=== PATIENT | female | born 1995 | race American Indian/Alaskan Native ===

== ENCOUNTER 2024-09-26 09:34 | Emergency (ER) | payer MEDICAID, SELFPAY ==
[2024-09-26 09:35] VITALS: BMI 46.3
[2024-09-26 09:50] VITALS: BP 133/87; PULSE 86; RESP 18; TEMP 37; O2SAT 99
--- NOTE | 2024-09-26 10:03 | EKG_ITS ---
[facility] (Formerly [facility]) Test Date: 2024-09-26 Pat Name: ANAMIKA DAVIS Department: Room: - Gender: Female [employer] Installer: : 1995 Requested By: Marcello Godinez (HEMA) Order Number: [id number] Reading MD: Marcello Godinez (DIRECT SUPPORT STAFF MEMBER) Measurements Intervals [place] Rate: 94 P: 16 WI: 156 QRS: 65 QRSD: 92 T: 22 QT: 356 QTc: 446 Interpretive Statements SINUS RHYTHM No previous ECG available for comparison /[id number]/[email or web address]/[id number]
--- NOTE | 2024-09-26 10:03 | XR_ITS ---
Examination: PA lateral chest 2 views Technique: Upright PA lateral chest 2 views Exam date and time: September 26, 2024 11:20 AM Indications: Coughing beginning 3 days ago. Findings: Normal heart size No lobar pneumonia. The osseous structures are intact Impression: No lobar pneumonia
--- NOTE | 2024-09-26 12:36 | EDNOTE_ITS ---
<Statement entered by Lorie Rivers MD - 09/27/24 06:06> As co-signing physician, I was present and available for consult prn. I concur with the plan and care as documented by the midlevel provider. Upper Respiratory Inf. RME/HPI General Chief Complaint: Headache Stated Complaint: HEADACHE & CHEST PAIN WITH COUGHING; Time Seen by Provider: 09/26/24 09:53 Arrival date/time: 09/26/24 09:34 28-year-old female presents emergency department today complaints of headache, cough, congestion and chest pain. Limitations: no limitations Related Data Home Medications ?Medication ?Instructions ?Recorded ?Confirmed ferrous sulfate 325 mg (65 mg 325 mg PO BID 01/11/23 0 11/21/23 iron) tablet vitamin-ferrous fumarate 1 tab PO QDAY 11/21/23 28 mg iron-folic acid 800 mcg tablet ( Vitamins with Minerals) Previous Rx's ?Medication ?Instructions ?Recorded albuterol sulfate 90 mcg/actuation 2 puff inhalation Q 6H PRN 09/26/24 aerosol inhaler (Ventolin HFA) shortness of breath or wheezing #8.5 grams benzonatate 100 mg capsule 100 mg PO TID #14 caps 02/12 ibuprofen 800 mg tablet 800 mg PO TID PRN pain #30 t abs 09/26/24 Allergies Allergy/AdvReac Type Severity Reaction Status Date / Time No Known Allergies Allergy Unknown Verified 09/26/24 09:37 Review of Systems Review of Systems Systems Reviewed: All systems reviewed, normal except as documented Constitutional Constitutional: Reports system reviewed and no additional complaints, except as documented, Denies fatigue, Denies fever(s) and Denies headache(s) Eyes Eyes: Reports system reviewed and no additional complaints, except as documented and Denies blurry vision ENT Ears, Nose, Mouth, and Throat: Reports system reviewed and no additional complaints, except as documented, Denies headache(s), Denies nasal congestion and Denies nasal discharge Cardiovascular Cardiovascular: Reports system reviewed and no additional complaints, except as documented, Reports chest pain and Denies dyspnea Respiratory Respiratory: Reports system reviewed and no additional complaints, except as documented, Reports chest congestion, Reports cough and Denies dyspnea Gastrointestinal Gastrointestinal: Reports system reviewed and no additional complaints, except as documented and Denies abdominal pain Genitourinary Genitourinary: Reports system reviewed and no additional complaints, except as documented, Denies flank pain, Denies hematuria and Denies pelvic pain Musculoskeletal Musculoskeletal: Reports system reviewed and no additional complaints, except as documented, Denies abnormal gait, Denies numbness, Denies stiffness and Denies tingling Integumentary/Breasts Skin/Breast: Reports system reviewed and no additional complaints, except as documented and Denies rash Neurologic Neurologic: Reports system reviewed and no additional complaints, except as documented, Reports as per HPI, Denies abnormal gait, Denies headache(s), Denies numbness and Denies tingling Psychiatric Psychiatric: Reports system reviewed and no additional complaints, except as documented and Denies anxiety Endocrine Endocrine: Denies fatigue Past Medical History Past Medical History NEUROLOGIC: Positive Neurological Disorders, Seizures and Epilepsy (LAST SEIZURE AT 20 YEARS OLD, NO MEDICATIONS); Negative Cerebrovascular Accident, Dementia, Alzheimer's Disease, Parkinson's Disease, Brain Tumor, Meningitis, Multiple Sclerosis, Cerebral Palsy, Amyotrophic Lateral Sclerosis (ALS/Laly Gehrig's), Guillain-[place]akfield Syndrome, Spina Bifida, Paralysis, Peripheral Neuropathy, Fernandez's Palsy, Migraine or Head Trauma CARDIAC: Positive Cardiac Disorders and Hypertension (GRANDMOTHER); Negative Congestive Heart Failure RESPIRATORY: Negative Chronic Obstructive Pulmonary Disease (COPD) GASTROINTESTINAL: Positive Gastrointestinal Disorders, Gall Bladder Disease, Gastroesophageal Reflux Disease and Obesity; Negative Hepatitis GENITOURINARY: Negative Genitourinary Disorders or Renal Disease REPRODUCTIVE: Positive Previous Pregnancies (X3); Negative Endometriosis, Genital Herpes, Gonorrhea, Pelvic Inflammatory Disease, Syphilis or Uterine Prolapse MUSCULOSKELETAL: Negative Musculoskeletal Disorders ENT: Negative Head Trauma ENDOCRINE: Negative Endocrine Disorders, Diabetes Mellitus Type 1 or Diabetes Mellitus Type 2 HEMATOLOGIC: Positive Blood Disorders and Anemia; Negative Leukemia, Hemophilia, Thalassemia, Sickle Cell Disease or Clotting Problems PSYCHO/SOCIAL: Positive Depression, Anxiety and Depression OTHER HISTORY: Negative Hospitalization, Autoimmune Disease, Down Syndrome, Developmental Delay, Shingles, Falls, Blood Transfusions, Blood Transfusion Reaction, Anesthesia Reactions, Organ Transplant, Chemotherapy, Radiation Therapy, Hyperbaric Therapy, MRSA, VRSA, Vancomycin-Resistant Enterococci, Human Immunodeficiency Virus (HIV), Chicken Pox, Measles, Mumps, Rubella (Nepali Measles), Pertussis, Clostridium Difficile or Cancer Family History FAMILY HISTORY: Positive Family Psychiatric Problems (SISTERS- BIPOLAR, DEPRESSION), Family Respiratory Disorders (MULTIPLE FAMILY MEMBERS- ASTHMA), Family Cardiac Disorders (GRANDMOTHER- HTN), Family Gastrointestinal Problems (SISTERS-GALL BLADDER DISEASE), Family Cancer (AUNT- BREAST) and Family Surgery (SISTERS- CHOLECYSTECTOMIES); Negative Family Anesthesia Reaction Surgical History SURGICAL: Positive Abdominal Surgery; Negative Section or Organ Transplant Social History SMOKING STATUS: Current some day smoker ED Exam General Limitations: Present no limitations General appearance: Present alert and in no apparent distress Head Head exam: Present atraumatic, normocephalic and normal inspection Eye Eye exam: Present normal appearance, PERRL and EOMI ENT ENT exam: Present normal exam, normal oropharynx and mucous membranes moist Neck Neck exam: Present normal inspection, full ROM and trachea midline Chest Chest inspection: Present normal inspection and symmetric chest wall rise Respiratory Respiratory exam: Present normal lung sounds bilaterally; Absent respiratory distress Cardiovascular Cardiovascular exam: Present regular rate, normal rhythm and normal heart sounds; Absent bradycardia, tachycardia or irregular rhythm Abdominal Exam Abdominal exam: Present soft and normal bowel sounds; Absent distention, tenderness, guarding, rebound or rigidity Extremities Exam Extremities exam: Present normal inspection and full ROM Back Exam Back exam: Present normal inspection and full ROM Neurological Exam Neurological exam: Present alert, oriented X3 and CN II-XII intact Psychiatric Psychiatric exam: Present normal affect and normal mood Skin Skin exam: Present warm, dry, intact and normal color Course Quality Measures none Orders Category Date Time Status EKG (ED ONLY) *Do not use* NOW Care 09/26/24 10:03 Completed EKG (ED Only) Stat Exams 09/26/24 10:03 Draft XR chest 2V Stat Exams 09/26/24 10:03 Completed Vital Signs Vital signs: Vital Signs Temperature 98.6 F 09/26/24 09:50 Pulse Rate 86 09/26/24 09:50 Respiratory Rate 18 09/26/24 09:50 Blood Pressure 133/87 H 09/26/24 09:50 Pulse Oximetry (%) 99 09/26/24 09:50 Oxygen Delivery Method Room Air 09/26/24 09:50 O2 saturation 99% on room air with normal limits Procedures -ED EKG Interpretation #1: Date of EK09/26/24 Time of EK:08 Rate: 94 Interpretation: Interpreted by me EKG Impression: Normal sinus rhythm, No acute ST-T changes, No ectopy, No ischemic changes, Normal QRS and Normal intervals Upper Respiratory Infection MDM Narrative MDM Narrative:: 28-year-old female presents emergency department today complaints of headache, cough, congestion and chest pain. On exam patient well-appearing patient does not appear ill or toxic in no acute distress Chest x-ray as well as EKG obtained no acute emergent findings noted Patient discharged home in no distress to follow-up with primary care doctor in the next 24 to 48 hours and for any worsening symptoms to return to the ER immediately Patient data External records reviewed:: [facility] previous records Clinical information provided by:: patient Social determinants that could affect healthcare access:: none Patient has the following chronic illnesses:: None How is presenting disease/condition affected by chronic disease/condition?: no chronic disease Evaluation data The following diagnostics were reviewed and interpreted by me:: lab results and radiology exam(s) Lab and/or radiology exams considered but not ordered:: Labs radiology obtained Interpretation Summary: Reviewed by me Medications / Prescriptions Medications or Prescriptions considered but not ordered:: Given Medication administrations:: Given Consultations Consultation(s) initiated? (list below): No Diagnosis Upper Respiratory Differential Diagnosis: upper respiratory infection, viral infection and bronchitis Most likely diagnosis given after review of the tests above:: Chest pain noncardiac, URI Admission Indicated Admission indicated?: not indicated Admission Request Was there a request for admission?: No Disposition Plan Disposition Plan: Discharge Discharge Attestation Discharge Attestation: The patient and all family members were given an opportunity to ask questions an d understood the discharge instructions. Discharge instructions specifically effects, indications for sooner follow up or return to the emergency department, and the expected course of current diagnosis. Patient condition: Stable Discharge Plan Plan Patient Disposition: HOME (Self Care) Disposition Comment: Stable Prescriptions/Referrals Prescriptions/Med Rec: New ibuprofen 800 mg tablet 800 mg PO TID PRN (Reason: pain) Qty: 30 0RF benzonatate 100 mg capsule 100 mg PO TID Qty: 14 0RF albuterol sulfate [Ventolin HFA] 90 mcg/actuation HFA aerosol inhaler 2 puff inhalation Q6H PRN (Reason: shortness of breath or wheezing) Qty: 8.5 0RF No Action vit-iron fum-folic ac [ Vitamin with Minerals] 28 mg iron- 800 mcg Tablet 1 tab PO QDAY ferrous sulfate 325 mg (65 mg iron) Tablet 325 mg PO BID Referrals: Yesica Cruz ([facility]), PA-C [Primary Care Provider] - In 1 week Problem List Clinical Impression: Cough, Chest pain Patient/Caregiver Discharge Instructions Education Materials: ED Chest Pain, Noncardiac Additional Instructions: Please follow up with your primary care doctor in the next 24-48hrs for any worsening symptoms return here immediately Print Language: Kosovan Stand Alone Forms: Kayla Award Info., Patient Portal Info Letter PA/DIRECTOR EXPORT Supervising Physician PA/DIRECTOR EXPORT Supervising Physician: Dr. rivers
== END 2024-09-26 15:03 | disposition home or self-care (01) ==
PROVIDERS: Emergency Provider Emergency Medicine; PCP Nurse Practitioner Family
DX: R05.9 Cough, unspecified (principal); R07.9 Chest pain, unspecified; I10 Essential (primary) hypertension; F17.290 Nicotine dependence, other tobacco product, uncomplicated
CPT/HCPCS: 71046; 93005; 99283

== ENCOUNTER → 2025-03-20 | Outpatient (CLI) | payer MEDICAID, SELFPAY ==
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
== END | disposition home or self-care (01) ==
PROVIDERS: PCP Nurse Practitioner Family; Referring Provider Nurse Practitioner Family; Visit Provider Nurse Practitioner Family
DX: M48.07 Spinal stenosis, lumbosacral region (principal); S39.92XS Unspecified injury of lower back, sequela; X58.XXXS Exposure to other specified factors, sequela
CPT/HCPCS: 72110